=== PATIENT | female | born 1980 | race Hispanic/Latino ===

== ENCOUNTER 2024-04-19 20:25 | Emergency (ER) | payer OTHER ==
[~2024-04-19] VITALS: Ht 144.8 cm; Wt 109.3 kg
[2024-04-19] MEDS: HYDROCODONE/ACETAMINOPHEN 5/325 MG TAB PO ONE (22:16)
[2024-04-19] MEDS ORDERED: AMOX-426 PO (23:04)
[2024-04-19] MEDS ORDERED: HYDR28CR51 TP (23:04)
[2024-04-19] MEDS: KETOROLAC 60 MG VIAL (30MG/ML) IM ONE (23:18)
[2024-04-20 00:10] VITALS: BP 133/74; PULSE 81; RESP 16; O2SAT 99
== END 2024-04-20 00:19 | disposition home or self-care (01) ==
LOC: EDH 20:25
DX: H66.91 Otitis media, unspecified, right ear (principal); L30.8 Other specified dermatitis; Z79.899 Other long term (current) drug therapy
CPT/HCPCS: 99283; 81025; 96372; J1885

== ENCOUNTER 2024-08-05 19:41 | Emergency (ER) | payer SELFPAY ==
[~2024-08-05] VITALS: Ht 144.8 cm; Wt 111.1 kg
[~2024-08-05 19:41] MED LIST: AMOX-426 PO; HYDR28CR51 TP
[2024-08-05 20:46] LABS: BASOPHILS # (AUTO) 0.03 K/uL (0.00-0.20); BASOPHILS % (AUTO) 0.5 % (0.0-5.0); EOSINOPHILS # (AUTO) 0.18 K/uL (0.00-0.70); EOSINOPHILS % (AUTO) 2.9 % (0.0-8.0); HEMATOCRIT 37.9 % (36-48); IMMATURE GRANULOCYTE ABSOLUTE 0.03 K/uL (0-1); LYMPHOCYTES # (AUTO) 2.3 K/uL (1.0-4.8); LYMPHOCYTES % (AUTO) 37.8 % (21.0-51.0); MEAN CORPUSCULAR HEMOGLOBIN 31.4 pg (27.0-33.0); MEAN CORPUSCULAR HGB CONC 33.5 g/dL (32.0-36.0); MEAN CORPUSCULAR VOLUME 93.6 fL (79-99); MONOCYTES # (AUTO) 0.5 K/uL (0.1-1.0); MONOCYTES % (AUTO) 8.5 % (3.0-13.0); NEUTROPHILS # (AUTO) 3.1 K/uL (1.8-7.7); NEUTROPHILS % (AUTO) 49.8 % (40.0-77.0); PLATELET COUNT (AUTO) 231 K/uL (130-400); RED BLOOD CELL COUNT(AUTO) 4.05 MIL/uL (4.00-5.50); RED CELL DISTRIBUTION WIDTH 13.1 % (11.0-15.5); WHITE BLOOD COUNT (AUTO) 6.1 K/uL (4.8-10.8)
[2024-08-05 20:57] LABS: CREATININE 0.6 mg/dL (0.5-1.0); POTASSIUM 3.5 mmol/L (3.5-5.1)
[2024-08-05] MEDS ORDERED: PNV-5 PO (21:56)
[2024-08-05 22:19] VITALS: BP 122/78; PULSE 82; RESP 18; TEMP 98.9; O2SAT 100
[2024-08-05] MEDS: acetaMINOPHEN 500 MG TABLET PO ONE (22:24)
== END 2024-08-05 22:30 | disposition home or self-care (01) ==
LOC: EDH 19:41
DX: Z33.1 Pregnant state, incidental (principal); Z79.899 Other long term (current) drug therapy; Z98.890 Other specified postprocedural states
CPT/HCPCS: 36415; 76801; 80048; 84702; 85025; 86850; 86900; 86901

== ENCOUNTER 2024-08-21 13:31 | Emergency (ER) | payer SELFPAY ==
[~2024-08-21] VITALS: Ht 157.5 cm; Wt 111.1 kg
[~2024-08-21 13:31] MED LIST changes: +PNV-5 PO
[2024-08-21 14:46] LABS: CREATININE 0.6 mg/dL (0.5-1.0)
[2024-08-21 15:16] VITALS: BP 103/45; PULSE 71; RESP 20; TEMP 98; O2SAT 99
== END 2024-08-21 15:15 | disposition home or self-care (01) ==
LOC: EDH 13:31
DX: O20.9 Hemorrhage in early pregnancy, unspecified (principal); O20.0 Threatened abortion; Z3A.01 Less than 8 weeks gestation of pregnancy
CPT/HCPCS: 36415; 76801; 80048; 84702; 84703